=== PATIENT | female | born 1960 | race Caucasian/White ===

== ENCOUNTER → 2021-03-16 | Outpatient (CLI) | payer BC, OTHER, SELFPAY | END | disposition home or self-care (01) | PROVIDERS: PCP Family Medicine; Referring Provider Specialist; Visit Provider Specialist | DX: I10 Essential (primary) hypertension (principal) ==

== ENCOUNTER → 2024-04-08 | Outpatient (CLI) | payer OTHER, SELFPAY ==
--- NOTE | 2024-04-08 14:35 | XR_ITS ---
EXAMINATION: Cervical spine, 5 views Technique: Cervical spine AP, AP odontoid, lateral, bilateral obliques, 5 views Exam date and time: April 08, 2024 at 1437 hours INDICATIONS: Patient fell at work April 02, 2024 with injury to the neck FINDINGS: No acute cervical fracture Grade 1 anterolisthesis C6 on C5 Advanced disc narrowing C5-C6, C6-C7 with moderate bilateral neural foraminal stenosis at these levels IMPRESSION: No acute cervical fracture Advanced degenerative disc disease C5-C6, C6-C7
--- NOTE | 2024-04-08 14:35 | XR_ITS ---
Examination: Lumbar spine, 5 views Technique: Lumbar spine AP, lateral, coned lateral lower lumbar spine, bilateral obliques 5 views Exam date and time: April 08, 2024 1437 hours INDICATIONS: Patient fell at work April 02, 2024 lower back pain FINDINGS: Significant osteopenia Diffuse significant facet arthropathy No acute lumbar fracture Advanced disc narrowing L4-L5 Moderate lumbar spondylosis IMPRESSION: No acute lumbar fracture Diffuse moderate to advanced lumbar degenerative disc disease most severe at L4-L5
== END | disposition home or self-care (01) ==
PROVIDERS: Referring Provider Family Medicine; Visit Provider Family Medicine
DX: M51.369 Other intervertebral disc degeneration, lumbar region without mention of lumbar back pain or lower extremity pain (principal); M50.322 Other cervical disc degeneration at C5-C6 level; S19.9XXA Unspecified injury of neck, initial encounter; S39.92XA Unspecified injury of lower back, initial encounter; W19.XXXA Unspecified fall, initial encounter
CPT/HCPCS: 72050; 72110

== ENCOUNTER 2024-08-27 16:04 | Emergency (ER) | payer OTHER, SELFPAY ==
[2024-08-27 16:46] VITALS: BP 158/92; PULSE 67; RESP 20; TEMP 36.3; O2SAT 100; BMI 32.9
--- NOTE | 2024-08-27 17:03 | EKG_ITS ---
[facility] Test Date: 2024-08-27 Pat Name: PATY MCKEON Department: Room: - Gender: Female [employer] Operator: : [id number] Requested By: Faina Perla ([facility]) Kayleigh Order Number: [id number] Reading MD: Faina Perla ([facility]) Kayleigh Measurements Intervals [place] Rate: 67 P: 10 CA: 180 QRS: 3 QRSD: 88 T: 63 QT: 388 QTc: 412 Interpretive Statements SINUS RHYTHM VOLTAGE CRITERIA FOR LVH [MEETS CRITERIA IN ONE OF: R(aVL), S(V1), R(V5), R(V5/V6)+S(V1)] Compared to ECG 11/12/2023 11:48:25 Left ventricular hypertrophy now present /store/S0/[id number]/ecg/[id number].pdf
--- NOTE | 2024-08-27 17:03 | XR_ITS ---
Examination: CT brain head without contrast. 2-D sagittal coronal reconstructions Date and time of exam:August 27, 2024 at 1724 hrs. Indications: Onset weakness headache today CTDI: vol (mGy):46.2 DLP: (mGycm):920 Technique: Multiple CT axial sections of the brain have been obtained, 5 mm slice thickness. Contrast has not been administered. 2-D sagittal, coronal reconstructions have been obtained Low dose protocols were performed. One or more of the following dose reduction techniques were used; automated exposure control, adjustment of the mA and/or KV according to patient size, use of iterative reconstruction technique. Findings: No significant ventricular enlargement. Intra-axial or extra-axial hemorrhage density is not seen. No mass effect or midline shift Basal cisterns are not remarkable. Fourth ventricle is midline. Cranial vault intact. Impression: Negative for acute hemorrhage, mass effect or midline shift
--- NOTE | 2024-08-27 17:03 | XR_ITS ---
Examination: PA chest single view Technique: Upright PA chest single view Exam date and time: August 27, 2024 at 1756 hrs. Indications: Onset dizziness today Findings: Normal heart size No aspiration pneumonia. Moderate osteopenia Impression: No active disease
--- NOTE | 2024-08-27 17:04 | PD.EDRME ---
Rapid Medical Screening Exam RME Arrival date/time: 08/27/24 16:04 This is a 64-year-old female who presents to the emergency department with complaints of generalized fatigue, shakiness x 1 hour. I have greeted and performed a focused initial assessment of this patient. Initial appropriate labs ordered at this time. A comprehensive ED assessment and evaluation of the patient and analysis of all test and completion of medical decision making process will be conducted by additional ED provider. Chief Complaint: Weakness Time Seen by Provider: 08/27/24 16:43 Vital signs: Vital Signs Temperature 97.4 F 08/27/24 16:46 Pulse Rate 67 08/27/24 16:46 Respiratory Rate 20 08/27/24 16:46 Blood Pressure 158/92 H 08/27/24 16:46 Pulse Oximetry (%) 100 08/27/24 16:46 Oxygen Delivery Method Room Air 08/27/24 16:46
[2024-08-27 18:22] LABS: Collection Type, Urine Clean Catch
[2024-08-27 18:28] LABS: Basophils % (Auto) 1 % (0-2.5); Eosinophils # (Auto) 0.1 Thou/mm3 (0.0-0.5); Eosinophils % (Auto) 1 % (0-10); Hematocrit 34.9 % (36.0-46.0); Hemoglobin 11.1 g/dL (12.0-16.0); Immature Granulocytes % (Auto) 0 % (0-0); Immature Granulocytes Auto 0.01 Thou/mm3 (0.00-0.00); Lymphocytes # (Auto) 1.5 Thou/mm3 (1.0-4.8); Lymphocytes % (Auto) 26 % (10-50); Mean Corpuscular HGB Conc 31.8 g/dl (31.0-37.0); Mean Corpuscular Hemoglobin 25.8 pg (25.0-35.0); Mean Corpuscular Volume 81 fL (80-100); Monocytes # (Auto) 0.3 Thou/mm3 (0.0-0.8); Monocytes % (Auto) 6 % (0-12); Neutrophils # (Auto) 3.7 Thou/mm3 (1.8-7.7); Neutrophils % (Auto) 67 % (37-80); Nucleated Red Blood Cell % 0 /100 WBC (0); Platelet Count 460 Thou/mm3 (140-440); RDW Standard Deviation 43.9 fL (36.4-46.3); Red Blood Count 4.31 Miln/mm3 (4.00-5.20); White Blood Count 5.6 Thou/mm3 (3.6-11.0)
[2024-08-27 18:39] LABS: Alanine Aminotransferase 23 U/L (10-49); Albumin, Serum 4.2 gm/dL (3.4-4.8); Albumin/Globulin Ratio 1.6 (1.2-2.2); Alkaline Phosphatase 108 U/L (46-116); Anion Gap 7 (7-16); Aspartate Amino Transferase 30 U/L (0-34); BUN/Creatinine Ratio 20 Ratio (12-20); Bilirubin,Total 0.3 mg/dL (0.3-1.2); Blood Urea Nitrogen 18 mg/dL (9-23); Calcium 9.6 mg/dL (8.3-10.6); Calcium (Corrected) 9.6 mg/dL (8.5-10.1); Carbon Dioxide 29.1 mMol/L (20.0-31.0); Chloride 98 mMol/L (98-107); Creatinine (Component) 0.9 mg/dL (0.6-1.3); Estimated Creatinine Clearance 70.5 mL/min (>60); Globulin 2.6 gm/dL (2.3-3.5); Glucose 115 mg/dL (74-106); Osmolality,Calculated 271 (275-295); Potassium 3.8 mMol/L (3.4-5.1); Sodium 134 mMol/L (136-145); Total Protein 6.8 gm/dL (5.7-8.2); Troponin I < 0.020 ng/mL (0.0-0.045); eGFR > 60 See Note
[2024-08-27 18:52] LABS: Bilirubin,Urine Negative (Negative); Blood,Urine Negative (Negative); Clarity,Urine Clear (Clear/Hazy); Color,Urine Lt-Yellow (Lt Yel-Yel); Glucose, Urine Negative (Negative); Ketones,Urine Negative (Negative); Leukocyte Esterase,Urine Negative (Negative); Nitrite,Urine Negative (Negative); Protein,Urine Negative (Neg - Trace); RBC,Urine < 1 /hpf (0-3); Specific Gravity,Urine 1.008 (1.001-1.035); Squamous Epithelial Cell,Urine < 1 /hpf (0-5); Urobilinogen,Urine Negative mg/dL (0.0-1.0); WBC,Urine 3 /hpf (0-5)
[2024-08-27 18:54] LABS: Partial Thromboplastin Time 27.9 Seconds (22.0-36.0); Prothrombin Time 10.5 Seconds (9.0-12.2)
[2024-08-27 18:58] LABS: Amphetamine/Methamp Scrn,U Negative (Negative); Barbiturate Screen,Urine Negative (Negative); Benzodiazepines Screen,Urine Negative (Negative); Benzoylecgonine Screen, Ur Negative (Negative); Fentanyl Screen,Urine Negative (Negative); Opiate Screen,Urine Positive (Negative); THC Screen,Urine Negative (Negative)
[2024-08-27 20:47] VITALS: BP 143/69; PULSE 71; RESP 19; TEMP 36.8; O2SAT 96
--- NOTE | 2024-08-27 21:34 | PD.EDWEAK ---
ED Weakness RME/HPI General Chief complaint: Weakness Stated complaint: WEAK, SHAKEY; FEEL LIKE PASSING OUT Time Seen by Provider: 08/27/24 16:43 Arrival date/time: 08/27/24 16:04 RME / HPI RME / HPI Narrative: 64-year-old female patient with no past medical history, came in for evaluation regarding dizziness, weakness, shaky, felt like passing out. Onset of symptoms earlier this afternoon after school. 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 Denies any neck pain denies any other complaints no medication was taken prior to arrival. Related Data Home Medications ?Medication ?Instructions ?Recorded ?Confirmed albuterol 90 mcg/actuation aerosol 90 mcg inhalation Q4HR PRN Wheezing 11/13/23 11/13/23 inhaler diltiazem HCl 120 mg 120 mg PO QDAY 11/13/23 11/13/23 capsule,extended release 24 hr, controlled fluticasone 100 mcg-salmeterol 50 1 inh inhalation BID 11/13/23 11/13/23 mcg/dose blistr powdr for inhalation (Wixela Inhub) thyroid 120 mg tablet 120 mg PO DAILY 11/13/23 11/13/23 Allergies Allergy/AdvReac Type Severity Reaction Status Date / Time No Known Allergies Allergy Unknown Uncoded 08/27/24 16:07 Review of Systems Review of Systems Narrative Review of Systems: Review of system reviewed and within normal limits except mentioned in HPI ED Exam Narrative Physical exam: VITAL SIGNS: Reviewed. GENERAL APPEARANCE: Alert and interactive, follows commands, no acute distress, HEAD AND FACE: Non-traumatic. ENT: PERRL, pink conjunctivitis, eyelid no trauma, Mucous membrane moist. NECK: Supple, nontender, no nuchal rigidity. CHEST: No tenderness, no crepitus, no paradoxical movement, no retractions. LUNGS: Clear, well ventilated, symmetric, no rales, no wheezing, no ronchi, no stridor, good breath sounds bilaterally. HEART: Regular rate, regular rhythm, no murmur, no gallops. ABDOMEN: Soft, positive bowel sounds, nondistended, no guarding, nontender, no rebound, no masses, RECTAL: Deferred. GENITAL: Deferred. NEUROLOGICAL: Gross motor function intact sensory function intact, Appropriate for age. MUSCULOSKELETAL: low back nontender, full range of motion. EXTREMITIES: Nontender, full range of motion. SKIN: Color pink, dry, no rash, no lacerations, no abrasions, no contusions. LYMPHATICS: Deferred. Course Quality Measures none Orders Category Date Time Status Bedside Blood Glucose NOW Care 08/27/24 17:03 Active Bedside Influenza A&B Antigen Test NOW Care 08/27/24 17:04 Completed Reporting Coordinator STAT Care 08/27/24 17:03 Active EKG (ED ONLY) *Do not use* NOW Care 08/27/24 17:[address] head/brain wo con Stat Exams 08/27/24 17:03 Completed EKG (ED Only) Stat Exams 08/27/24 17:03 Draft XR chest 1V portable Stat Exams 08/27/24 17:03 Completed CBC Stat Lab 08/27/24 17:47 Completed Comprehensive Metabolic Panel Stat Lab 08/27/24 17:47 Completed Drug Screen,Urine Stat Lab 08/27/24 18:13 Completed Partial Thromboplastin Time Stat Lab 08/27/24 17:47 Completed Prothrombin Time with INR Stat Lab 08/27/24 17:47 Completed Troponin I Stat Lab 08/27/24 17:47 Completed Urinalysis Stat Lab 08/27/24 18:13 Completed Vital Signs Vital signs: Vital Signs Temperature 97.4 F 08/27/24 16:46 Pulse Rate 67 08/27/24 16:46 Respiratory Rate 20 08/27/24 16:46 Blood Pressure 158/92 H 08/27/24 16:46 Pulse Oximetry (%) 100 08/27/24 16:46 Oxygen Delivery Method Room Air 08/27/24 16:46 Weakness MDM Narrative MDM Narrative:: 64-year-old female patient with no past medical history, came in for evaluation regarding dizziness, weakness, shaky, felt like passing out. Onset of symptoms earlier this afternoon after school. 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 Denies any neck pain denies any other complaints no medication was taken prior to arrival. On reevaluation patient told me that his symptoms is almost gone. I offered IV fluids, patient refused patient wanted to go home. Patient is ambulatory unaided. Patient appears nontoxic and hemodynamically stable. Patient discharged home and instructed to follow-up with primary care provider in 24 to 48 hours. Instructed to return to the emergency department immediately if worsening of symptoms Patient data External records reviewed:: None Clinical information provided by:: patient Social determinants that could affect healthcare access:: none Patient has the following chronic illnesses:: None How is presenting disease/condition affected by chronic disease/condition?: no chronic disease Evaluation data The following diagnostics were reviewed and interpreted by me:: lab results, radiology exam(s) and EKG tracing(s) Lab and/or radiology exams considered but not ordered:: None Interpretation Summary: EKG shows sinus rhythm, ventricular rhythm 61 bpm, no ST segment elevation depression noted. Laboratory workup all came back unremarkable. Urinalysis no UTI CT scan of the head came back normal I personally reviewed and interpreted the x-ray of this patient. There is no acute abnormalities found, no infiltrates no pneumothorax no hemothorax normal chest x-ray. Review of other structures was without significant abnormal findings also. I additionally reviewed the radiologist report and agree with the interpretation. Medications / Prescriptions Medications or Prescriptions considered but not ordered:: None Medication administrations:: None Consultations Consultation(s) initiated? (list below): No Diagnosis Weakness Differential Diagnosis: dehydration and other Most likely diagnosis given after review of the tests above:: Dizziness, generalized weakness Admission Indicated Admission indicated?: not indicated Explain why admission is indicated or not indicated:: Stable Admission Request Was there a request for admission?: No Disposition Plan Disposition Plan: Discharge Discharge Attestation Discharge Attestation: The patient and all family members were given an opportunity to ask questions and understood the discharge instructions. Discharge instructions specifically effects, indications for sooner follow up or return to the emergency department, and the expected course of current diagnosis. Patient condition: Stable Discharge Plan Plan Patient Disposition: HOME (Self Care) Disposition Comment: Stable Prescriptions/Referrals Prescriptions/Med Rec: No Action diltiazem HCl 120 mg Capsule,Ext.Rel 24h Degradable 120 mg PO QDAY thyroid 120 mg Tablet 120 mg PO DAILY albuterol 90 mcg/actuation Aerosol 90 mcg INHALATION Q4HR PRN (Reason: Wheezing) fluticasone propion-salmeterol [Wixela Inhub] 100-50 mcg/dose Blister With Device 1 inh INHALATION BID Referrals: No Primary/Family,Physician [Primary Care Provider] - In 1 week Problem List Clinical Impression: Dizziness, Weakness generalized Patient/Caregiver Discharge Instructions Discharge Activity: activity as tolerated Education Materials: ED Weakness (Uncertain Cause) Additional Instructions: Thank you for the opportunity for serving you today. You are stable for discharged . You are advised to: Follow-up with your PCP in 1 to 2 days Return to ED for worsening of symptoms Increase oral fluids Print Language: Icelandic Stand Alone Forms: Sary Award Info., Patient Portal Info Letter PA/CLIENT SERVICE EXECUTIVE Supervising Physician PA/CLIENT SERVICE EXECUTIVE Supervising Physician: MD Monie
[2024-08-27 21:35] VITALS: BP 122/79; PULSE 77; RESP 18; TEMP 36.7; O2SAT 100
== END 2024-08-27 21:45 | disposition home or self-care (01) ==
PROVIDERS: Nurse Practitioner Primary Care; Emergency Provider Emergency Medicine
DX: R42 Dizziness and giddiness (principal); R53.1 Weakness
CPT/HCPCS: 36415; 70450; 71045; 80053; 80307; 81001; 84484; 85025; 85610; 85730; 87400; 93005; 99284

== ENCOUNTER → 2024-09-12 | Outpatient (CLI) | payer OTHER, SELFPAY ==
--- NOTE | 2024-09-12 10:00 | XR_ITS ---
MRI shoulder, right, without contrast. Date and time: September 12, 2024 1036 hours INDICATIONS: Right shoulder pain radiating to the arm joint clicking after fall in March 2024 Technique: Multiple axial, sagittal and coronal sections of the shoulder have been obtained. Siemens high-resolution 1.5 Lesley MRI scanner is utilized. Axial fat-suppressed sections, TR 2350, TE 18 T2-weighted coronal fat-saturated images, TR 3500, TE 7100 T1-weighted coronal images, TR 500, TE 15 T2-weighted sagittal fat-saturated images, TR 3500, TE 57 T1-weighted sagittal sections, TR 504, TE 13. Findings: Supraspinatus tendon insertion is intact. Infraspinatus tendon insertion is intact. Subscapularis insertion is intact. Subscapularis bursa is not seen. Long head of the biceps is in the bicipital groove. No definite tear of the biceps superior labral anchor is seen. Retraction of the musculotendinous junction of the rotator cuff is not seen . Tendinosis pattern is moderate. Distance between the acromium and humeral head is 7 mm Atrophy of the supraspinatus muscle is moderate. Atrophy of the infraspinatus muscle is mild. Sagittal sections demonstrate a horizontal acromion. 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 Osacromiale is not identified. Tears of the anterior superior posterior labral margins. Bony glenoid fossa on the sagittal sections does not demonstrate osseous defect. Occult fracture or area of avascular necrosis is not seen. Acromioclavicular joint separation is not visible. Defect in the posterolateral margin of the humeral head is not seen Impression: Moderate rotator cuff tendinosis Tears of the anterior superior posterior labral margins
== END | disposition home or self-care (01) ==
LOC: SMRI 09:39
PROVIDERS: Referring Provider Family Medicine; Visit Provider Family Medicine
DX: M67.813 Other specified disorders of tendon, right shoulder (principal); S43.431A Superior glenoid labrum lesion of right shoulder, initial encounter; X58.XXXA Exposure to other specified factors, initial encounter
CPT/HCPCS: 73221